=== PATIENT | female | born 1950 ===

== ENCOUNTER 2018-03-13 12:20 | Emergency (ER) | payer OTHER, BC ==
[~2018-03-13] VITALS: Ht 165.1 cm; Wt 68.9 kg
[2018-03-13] MEDS ORDERED: TRAMADOL HCL50 MG PO (20:18)
== END 2018-03-13 20:44 | disposition home or self-care (01) ==
LOC: ER 12:20
DX: S82.851A Displaced trimalleolar fracture of right lower leg, initial encounter for closed fracture (principal); S82.65XA Nondisplaced fracture of lateral malleolus of left fibula, initial encounter for closed fracture; W18.39XA Other fall on same level, initial encounter; Y93.89 Activity, other specified; Y92.89 Other specified places as the place of occurrence of the external cause; Y99.8 Other external cause status